=== PATIENT | male | born 1950 | race Caucasian/White ===

== ENCOUNTER → 2016-10-16 | Outpatient (CLI) | payer BC, MEDICARE ==
--- NOTE | ~2016-10-16 | ECH ---
Transthoracic Echocardiography Report (TTE) Demographics Patient Name TYLER NEWELL Date of Study 10/16/2016 Patient Number [id number] Visit Number [id number] Date of 1950 Room Number Accession Number [id number] Gender Male Age 66 year(s) Referring Rhoda Herndon Marine Habitat Resource Specialist Jacque Rodriguez [facility] Physician Physician Interpreting King Aki Weiss MD Clinical Biochemist Physician Supervising Ordering Physician Rhoda Herndon MD/P Nurse Stress Radio Presenter Conclusions Summary Technically fair exam. The estimated left ventricular ejection fraction is 60-65%. Mild left ventricular posterior wall hypertrophy. Diastolic assessment reveals Grade I diastolic dysfunction. The right atrium is mildly dilated. The aortic root appears mildly dilated. The maximum diameter measures 3.5 cm. Procedure Type of Study TTE procedure:Echo Complete SF. Procedure Date Date: 10/16/2016 Start: 01:11 PM Technical Quality: Fair due to body habitus. Indications:Pulmonary hypertension. Additional Indications:morbid obesity Appropriate Use Criteria: 9 Height: 70 inches Weight: 370 pounds BSA: 2.71 m Rhythm: Within normal limits HR: 74 bpm BP: 154/71 mmHg M-Mode/2D Measurements LV Diastolic Dimension: 5.33 cm LV Systolic Dimension: 3.78 cm LV Septum Diastolic: 0.86 cm LV PW Diastolic: 1.14 cm AO Root Dimension: 3.5 cm Cardiac Output: 7.94 l/min LA Dimension: 4.28 cm Cardiac Index: 2.93 l/min*m LA volume index: 17 ml/m LVOT: 2.26 cm RV Base: 3.8 cm LVOT VTI: 26.77 cm RV Mid: 2.4 cm LV Stroke volume: 107.33 ml RV Length: 7.7 cm LV Stroke volume index: 39.61 ml/m TDI-S': 15 cm/s Doppler Measurements AV Peak Velocity: 1.49 m/s MV Peak E-Wave: 0.84 m/s AV Peak Gradient: 8.88 mmHg MV Peak A-Wave: 1.14 m/s AV Mean Gradient: 4.64 mmHg MV E/A Ratio: 0.74 LVOT Peak Velocity: 1.33 m/s MV P1/2t: 84.9 msec AV Area (Continuity):3.6 cm MV Deceleration Time: 232.1 msec MV Area (PHT): 2.59 cm RA Area: 20.34 cm Findings Left Ventricle The left ventricle is normal in size . Mild left ventricular posterior wall hypertrophy. Diastolic assessment reveals Grade I diastolic dysfunction. Right Ventricle Right ventricle not well visualized. Left Atrium Normal left atrial size. Right Atrium The right atrium is mildly dilated. Mitral Valve Normal mitral valve structure and function. Aortic Valve The aortic valve was not well imaged but appears mildly sclerotic. Tricuspid Valve Normal tricuspid valve structure and function. Pulmonic Valve The pulmonic valve is not well visualized. Pericardial Effusion No evidence of pericardial effusion. Miscellaneous The aortic root appears mildly dilated. The maximum diameter measures 3.5 cm. Pleural Effusion No evidence of pleural effusion. Signature
== END | disposition home or self-care (01) ==
LOC: CARD 12:43
DX: I27.2 Other secondary pulmonary hypertension (principal); I51.89 Other ill-defined heart diseases